=== PATIENT | female | born 1945 | race African-American/Black ===

== ENCOUNTER 2018-10-16 12:58 | Inpatient (IN) | payer MEDICARE, MEDICAID ==
[~2018-10-16] VITALS: Ht 167.6 cm; Wt 70.3 kg
[~2018-10-16 12:58] MED LIST: AMLO10TA80 PO; ASPI-1159 PO; ATOR10TA PO; CARB200T6 PO; DIVA-73 PO; DOCU-150 PO; HYDR-4134 PO; KEPP500 PO; LACT10SO30 PO; METO25TA6 PO; ROPI0.257 PO; SOD133EN RC; VALS160T2 PO
[2018-10-16 15:27] LABS: BASOPHILS % 0.4 % (0.0-2.0); EOSINOPHILS % 1.5 % (0.0-5.0); HEMATOCRIT. 32.8 % (36.0-48.0); HEMOGLOBIN. 10.8 g/dL (12.0-16.0); LYMPHOCYTES % 20.4 % (20.0-50.0); MEAN CORPUSCULAR HEMOGLOBIN 31.8 pg (28.0-32.0); MEAN CORPUSCULAR VOLUME 96.3 fL (81.0-99.0); MONOCYTES % 13.4 % (2.0-8.0); NEUTROPHILS % 64.3 % (40.0-76.0); PLATELET 191 x1000/uL (130-400); RED BLOOD CELL COUNT 3.41 mill/uL (4.2-5.4); RED CELL DISTRIBUTION WIDTH 12.9 % (11.6-14.6)
[2018-10-16 15:31] LABS: CHLORIDE 107 mEq/L (98-107)
[2018-10-16 15:32] LABS: PARTIAL THROMBOPLASTIN TIME 28.7 sec (23.4-31.0)
[2018-10-16 15:48] LABS: CLARITY URINE CLOUDY (CLEAR); KETONES URINE TRACE (NEGATIVE); LEUKOCYTE ESTERASE URINE 1+ (NEGATIVE); NITRITE URINE POSITIVE (NEGATIVE); OCCULT BLOOD URINE 3+ (NEGATIVE); PROTEIN URINE 2+ (NEGATIVE); SPECIFIC GRAVITY URINE 1.011 (1.005-1.030)
[2018-10-16 15:53] LABS: COLOR URINE BROWN (YELLOW)
[2018-10-16] MEDS ORDERED: CEFTRIAXONE 1 G PREMIX 50 ML IV ONE (16:45)
[2018-10-16] MEDS ORDERED: GUAIFENESIN 200MG/10ML SUGAR FREE UDC PO PRN (18:00)
[2018-10-16] MEDS ORDERED: ONDANSETRON HCL 4MG/2ML INJ IV PRN (18:00)
[2018-10-16] MEDS ORDERED: DOCUSATE SODIUM 100MG CAPSULE PO PRN (18:00)
[2018-10-16] MEDS ORDERED: LORAZEPAM 2MG/ML CPJ IV PRN (18:00)
[2018-10-16] MEDS ORDERED: MAGNESIUM/ALUMINUM HYDROXIDE/SIMETHICONE 30ML UDC PO PRN (18:00)
[2018-10-16] MEDS ORDERED: HYDROCODONE/ACETAMINOPHEN 5/325MG TABLET PO PRN (18:00)
[2018-10-16] MEDS ORDERED: ACETAMINOPHEN 325MG TABLET PO PRN (18:00)
[2018-10-16] MEDS: CLONIDINE 0.1MG TABLET PO PRN (22:00)
[2018-10-16] MEDS ORDERED: HYDRALAZINE 20MG/ML VIAL IV NR (23:45)
[2018-10-17] VITALS (7 sets, daily range): BP systolic 103–172; BP diastolic 42–58
[2018-10-17] MEDS ORDERED: BENA10TA10 PO (00:48)
[2018-10-17] MEDS ORDERED: BISA-81 PO (00:50)
[2018-10-17] MEDS ORDERED: NA P133E RC (00:53)
[2018-10-17] MEDS ORDERED: HALO1TAB PO (00:55)
[2018-10-17] MEDS ORDERED: IBUP-2028 PO (00:56)
[2018-10-17] MEDS ORDERED: LACT10SO PO (00:57)
[2018-10-17] MEDS ORDERED: METO10TA3 PO (00:58)
[2018-10-17] MEDS ORDERED: LEVOFLOXACIN 500MG PREMIX 100 ML IV NR (01:00)
[2018-10-17] MEDS ORDERED: PRAV20TA57 PO (01:00)
[2018-10-17] MEDS ORDERED: RISP0.5T19 PO (01:01)
[2018-10-17] MEDS ORDERED: ACET-2708 PO (01:02)
[2018-10-17] MEDS: SODIUM CHLORIDE 0.9% 1,000 ML IV SCH ×2 (01:32→14:36)
[2018-10-17 06:45] LABS: HEMATOCRIT. 32.3 % (36.0-48.0); HEMOGLOBIN. 10.7 g/dL (12.0-16.0); MEAN CORPUSCULAR HEMOGLOBIN 31.9 pg (28.0-32.0); MEAN CORPUSCULAR VOLUME 96.2 fL (81.0-99.0); PLATELET 169 x1000/uL (130-400); RED BLOOD CELL COUNT 3.36 mill/uL (4.2-5.4); RED CELL DISTRIBUTION WIDTH 13.1 % (11.6-14.6)
[2018-10-17 07:51] LABS: CHLORIDE 113 mEq/L (98-107)
[2018-10-17 07:58] LABS: PLATELET ESTIMATE NORMAL
[2018-10-17] MEDS: METOPROLOL TARTRATE 25MG TABLET PO SCH (11:30)
[2018-10-17] MEDS: LEVETIRACETAM 500MG TABLET PO SCH ×2 (12:15→20:33)
[2018-10-17] MEDS: DIVALPROEX SODIUM 250MG DR TABLET PO SCH ×2 (12:15→16:30)
[2018-10-17] MEDS: CARBAMAZEPINE 200MG TABLET PO SCH ×2 (12:16→16:30)
[2018-10-17] MEDS ORDERED: DIVALPROEX SODIUM 125MG EC TABLET PO SCH (14:00)
[2018-10-17] MEDS: HYDRALAZINE HCL 25MG TABLET PO SCH ×2 (14:31→20:34)
[2018-10-17] MEDS: ROPINIROLE HCL 1MG TABLET PO SCH ×2 (14:31→20:33)
[2018-10-17] MEDS: ATORVASTATIN CALCIUM 10MG TABLET PO SCH (20:33)
[2018-10-17] MEDS: CLONIDINE 0.1MG TABLET PO PRN (20:34)
[2018-10-18] VITALS (7 sets, daily range): BP systolic 94–205; BP diastolic 49–73
[2018-10-18] MEDS: LEVOFLOXACIN 250MG PREMIX 50 ML IV SCH ×2 (00:09→23:09)
[2018-10-18] MEDS: SODIUM CHLORIDE 0.9% 1,000 ML IV SCH ×2 (05:28→17:36)
[2018-10-18] MEDS: ROPINIROLE HCL 1MG TABLET PO SCH ×3 (05:29→21:15)
[2018-10-18] MEDS: HYDRALAZINE HCL 25MG TABLET PO SCH ×3 (05:29→21:15)
[2018-10-18 06:42] LABS: HEMATOCRIT. 32.1 % (36.0-48.0); HEMOGLOBIN. 10.5 g/dL (12.0-16.0); MEAN CORPUSCULAR HEMOGLOBIN 31.5 pg (28.0-32.0); MEAN CORPUSCULAR VOLUME 96.8 fL (81.0-99.0); MEAN PLATELET VOLUME 9.4 fl (7.4-10.4); PLATELET 173 x1000/uL (130-400); RED BLOOD CELL COUNT 3.32 mill/uL (4.2-5.4); RED CELL DISTRIBUTION WIDTH 13.2 % (11.6-14.6)
[2018-10-18 06:43] LABS: CHLORIDE 115 mEq/L (98-107)
[2018-10-18] MEDS: LEVETIRACETAM 500MG TABLET PO SCH ×2 (08:28→20:56)
[2018-10-18] MEDS: DIVALPROEX SODIUM 250MG DR TABLET PO SCH ×2 (08:28→17:35)
[2018-10-18] MEDS: CARBAMAZEPINE 200MG TABLET PO SCH ×3 (08:28→17:35)
[2018-10-18] MEDS: METOPROLOL TARTRATE 25MG TABLET PO SCH (08:28)
[2018-10-18 11:13] LABS: PLATELET ESTIMATE NORMAL
[2018-10-18] MEDS: CLONIDINE 0.1MG TABLET PO PRN (20:57)
[2018-10-18] MEDS: ATORVASTATIN CALCIUM 10MG TABLET PO SCH (20:57)
[2018-10-19] VITALS (29 sets, daily range): BP systolic 131–237; BP diastolic 56–117
[2018-10-19] MEDS: ROPINIROLE HCL 1MG TABLET PO SCH ×3 (06:02→22:00)
[2018-10-19] MEDS: HYDRALAZINE HCL 25MG TABLET PO SCH (06:03)
[2018-10-19 06:45] LABS: CHLORIDE 119 mEq/L (98-107)
[2018-10-19] MEDS: LEVETIRACETAM 500MG TABLET PO SCH (09:00)
[2018-10-19] MEDS: CARBAMAZEPINE 200MG TABLET PO SCH ×3 (09:00→18:20)
[2018-10-19] MEDS: DIVALPROEX SODIUM 250MG DR TABLET PO SCH ×2 (09:00→17:00)
[2018-10-19] MEDS: METOPROLOL TARTRATE 25MG TABLET PO SCH (09:01)
[2018-10-19] MEDS ORDERED: SODIUM POLYSTYRENE SULFONATE 15 G/60 ML BOT PO SCH (10:00)
[2018-10-19] MEDS: SODIUM CHLORIDE 0.9% 1,000 ML IV SCH ×2 (10:02→22:09)
[2018-10-19] MEDS: CLONIDINE 0.1MG TABLET PO PRN (11:26)
[2018-10-19] MEDS: METOPROLOL TARTRATE 50MG TABLET PO SCH ×2 (12:30→21:00)
[2018-10-19] MEDS: HYDRALAZINE HCL 100MG TABLET PO SCH ×2 (12:30→22:00)
[2018-10-19] MEDS: CLONIDINE 0.1MG TABLET PO SCH (13:40)
[2018-10-19] MEDS ORDERED: HYDRALAZINE HCL 50MG TABLET PO SCH (14:00)
[2018-10-19] MEDS ORDERED: CLONIDINE HCL 0.3MG/24HR PATCH TD NR (17:30)
[2018-10-19] MEDS ORDERED: LACTULOSE 20G/30ML UDC NG PRN (17:45)
[2018-10-19] MEDS ORDERED: NA PHOS,M-B/NA PHOS,DI-BA ENEMA 118ML PR NR (17:45)
[2018-10-19] MEDS: NICARDIPINE 50 MG in SODIUM CHLORIDE 0.9% 230 ML IV PRN (20:10)
[2018-10-19] MEDS: ATORVASTATIN CALCIUM 10MG TABLET PO SCH (21:00)
[2018-10-20] VITALS (86 sets, daily range): BP systolic 108–181; BP diastolic 48–128
[2018-10-20] MEDS: LEVETIRACETAM 500 MG in SODIUM CHLORIDE 0.9% 100 ML IV SCH ×3 (00:34→21:49)
[2018-10-20] MEDS: VALPROATE SODIUM 500 MG in SODIUM CHLORIDE 0.9% 100 ML IV SCH ×3 (00:34→21:48)
[2018-10-20] MEDS: NICARDIPINE 50 MG in SODIUM CHLORIDE 0.9% 230 ML IV PRN ×2 (00:34→06:08)
[2018-10-20] MEDS: LEVOFLOXACIN 250MG PREMIX 50 ML IV SCH (00:35)
[2018-10-20 05:50] LABS: BASOPHILS % 0.5 % (0.0-2.0); HEMATOCRIT. 30.4 % (36.0-48.0); HEMOGLOBIN. 10.1 g/dL (12.0-16.0); LYMPHOCYTES % 14.6 % (20.0-50.0); MEAN CORPUSCULAR HEMOGLOBIN 31.8 pg (28.0-32.0); MONOCYTES % 12.6 % (2.0-8.0); NEUTROPHILS % 71.3 % (40.0-76.0); RED BLOOD CELL COUNT 3.17 mill/uL (4.2-5.4); RED CELL DISTRIBUTION WIDTH 12.9 % (11.6-14.6)
[2018-10-20 05:54] LABS: CHLORIDE 120 mEq/L (98-107)
[2018-10-20] MEDS: ROPINIROLE HCL 1MG TABLET PO SCH ×3 (06:00→22:19)
[2018-10-20] MEDS: HYDRALAZINE HCL 100MG TABLET PO SCH ×3 (06:00→22:19)
[2018-10-20] MEDS ORDERED: SORBITOL 70% SOLN 30ML PO NR (10:00)
[2018-10-20] MEDS: METOPROLOL TARTRATE 50MG TABLET PO SCH ×2 (11:55→21:49)
[2018-10-20] MEDS: CARBAMAZEPINE 200MG TABLET PO SCH ×3 (11:56→18:20)
[2018-10-20] MEDS: DEXT 5%/0.45% NACL 1000ML 1,000 ML IV SCH (12:17)
[2018-10-20] MEDS ORDERED: CLONIDINE HCL 0.3MG/24HR PATCH TOP SCH (18:00)
[2018-10-20] MEDS: NICARDIPINE 100 MG in SODIUM CHLORIDE 0.9% 60 ML IV PRN (18:06)
[2018-10-20] MEDS ORDERED: LEVOFLOXACIN 250MG TABLET PO SCH (21:00)
[2018-10-20] MEDS: ATORVASTATIN CALCIUM 10MG TABLET PO SCH (21:49)
[2018-10-21] VITALS (94 sets, daily range): BP systolic 94–171; BP diastolic 40–133
[2018-10-21] MEDS: NICARDIPINE 100 MG in SODIUM CHLORIDE 0.9% 60 ML IV PRN ×3 (00:37→13:39)
[2018-10-21] MEDS: DEXT 5%/0.45% NACL 1000ML 1,000 ML IV SCH (02:10)
[2018-10-21] MEDS: HYDRALAZINE HCL 100MG TABLET PO SCH (06:26)
[2018-10-21] MEDS: ROPINIROLE HCL 1MG TABLET PO SCH (06:26)
[2018-10-21] MEDS: CARBAMAZEPINE 200MG TABLET PO SCH ×2 (08:20→12:26)
[2018-10-21] MEDS: VALPROATE SODIUM 500 MG in SODIUM CHLORIDE 0.9% 100 ML IV SCH ×2 (08:54→21:24)
[2018-10-21] MEDS: LEVETIRACETAM 500 MG in SODIUM CHLORIDE 0.9% 100 ML IV SCH ×2 (08:54→20:53)
[2018-10-21] MEDS: METOPROLOL TARTRATE 50MG TABLET PO SCH ×2 (09:00→20:13)
[2018-10-21 09:23] LABS: BASOPHILS % 0.5 % (0.0-2.0); EOSINOPHILS % 0.4 % (0.0-5.0); HEMATOCRIT. 29.6 % (36.0-48.0); HEMOGLOBIN. 9.8 g/dL (12.0-16.0); LYMPHOCYTES % 12.1 % (20.0-50.0); MEAN CORPUSCULAR HEMOGLOBIN 31.5 pg (28.0-32.0); MEAN PLATELET VOLUME 8.7 fl (7.4-10.4); MONOCYTES % 10.6 % (2.0-8.0); NEUTROPHILS % 76.4 % (40.0-76.0); PLATELET 151 x1000/uL (130-400); RED BLOOD CELL COUNT 3.12 mill/uL (4.2-5.4); RED CELL DISTRIBUTION WIDTH 12.6 % (11.6-14.6)
[2018-10-21] MEDS: DEXTROSE 5% WATER 1,000 ML IV SCH ×2 (11:22→23:54)
[2018-10-21] MEDS ORDERED: POTASSIUM CHLORIDE INJ 40 MEQ in DEXT 5% WATER 250 ML IV NR (12:00)
[2018-10-21] MEDS: METOCLOPRAMIDE HCL 10MG/2ML VIAL IV SCH ×2 (13:31→21:24)
[2018-10-21] MEDS: LEVOFLOXACIN 250MG PREMIX 50 ML IV SCH (20:53)
[2018-10-21] MEDS ORDERED: ACETAMINOPHEN 650MG SUPP PR PRN (21:30)
[2018-10-22] VITALS (95 sets, daily range): BP systolic 96–210; BP diastolic 51–151
[2018-10-22] MEDS ORDERED: KCL 20MEQ/100ML PREMIX 100 ML IV NR
[2018-10-22] MEDS: NICARDIPINE 100 MG in SODIUM CHLORIDE 0.9% 60 ML IV PRN ×2 (00:21→10:28)
[2018-10-22] MEDS: METOCLOPRAMIDE HCL 10MG/2ML VIAL IV SCH ×3 (05:43→22:17)
[2018-10-22 05:55] LABS: BASOPHILS % 0.3 % (0.0-2.0); EOSINOPHILS % 0.2 % (0.0-5.0); HEMATOCRIT. 29.7 % (36.0-48.0); HEMOGLOBIN. 9.7 g/dL (12.0-16.0); LYMPHOCYTES % 11.3 % (20.0-50.0); MEAN CORPUSCULAR HEMOGLOBIN 31.3 pg (28.0-32.0); MEAN CORPUSCULAR VOLUME 95.8 fL (81.0-99.0); MEAN PLATELET VOLUME 9.1 fl (7.4-10.4); MONOCYTES % 9.9 % (2.0-8.0); NEUTROPHILS % 78.3 % (40.0-76.0); PLATELET 127 x1000/uL (130-400); RED CELL DISTRIBUTION WIDTH 12.8 % (11.6-14.6)
[2018-10-22 06:30] LABS: PHOSPHORUS 2.5 mg/dL (2.5-4.9)
[2018-10-22] MEDS: LEVETIRACETAM 500 MG in SODIUM CHLORIDE 0.9% 100 ML IV SCH ×2 (08:50→20:53)
[2018-10-22] MEDS: METOPROLOL TARTRATE 50MG TABLET PO SCH ×2 (09:00→20:52)
[2018-10-22] MEDS ORDERED: MAGNESIUM 1 G PREMIX 100 ML IV SCH (09:00)
[2018-10-22 09:16] LABS: BG CARBOXYHEMOGLOBIN 0.3 % (0.5-1.5); BG DEOXYHEMOGLOBIN 11.9 % (0.0-5.0); BG FRACTION INSPIRED OXYGEN 50; BG HCO3 ACT 21.1 mmol/L (22.0-26.0); BG METHEMOGLOBIN 0.3 % (0.0-1.5); BG OXYHEMOGLOBIN 87.5 % (94.0-97.0); BG PCO2 34.2 mmHg (35.0-45.0); BG PH 7.409 (7.350-7.450); BG SAMPLE SITE RIGHT RADIAL; BG TOTAL HEMOGLOBIN 9.6 g/dL (12.0-18.0); BG VENT MODE MASK - VENTI
[2018-10-22] MEDS ORDERED: POTASSIUM CHLORIDE 20MEQ TABLET SR PO NR (10:00)
[2018-10-22] MEDS: SORBITOL 70% SOLN 30ML PO SCH ×2 (10:30→13:15)
[2018-10-22] MEDS ORDERED: IPRATROPIUM/ALBUTEROL 0.5-3(2.5)MG/3ML NEB HHN PRN (10:45)
[2018-10-22] MEDS: VALPROATE SODIUM 500 MG in SODIUM CHLORIDE 0.9% 100 ML IV SCH ×2 (11:10→20:53)
[2018-10-22] MEDS: IPRATROPIUM/ALBUTEROL 0.5-3(2.5)MG/3ML NEB HHN SCH ×2 (12:45→21:39)
[2018-10-22] MEDS: DEXTROSE 5% WATER 1,000 ML IV SCH (13:15)
[2018-10-22] MEDS: LEVOFLOXACIN 250MG PREMIX 50 ML IV SCH (20:53)
[2018-10-23] VITALS (98 sets, daily range): BP systolic 109–174; BP diastolic 46–141
[2018-10-23] MEDS: IPRATROPIUM/ALBUTEROL 0.5-3(2.5)MG/3ML NEB HHN SCH ×4 (02:42→20:14)
[2018-10-23] MEDS: DEXTROSE 5% WATER 1,000 ML IV SCH ×2 (03:59→17:31)
[2018-10-23 06:04] LABS: BASOPHILS % 0.1 % (0.0-2.0); EOSINOPHILS % 0.6 % (0.0-5.0); HEMATOCRIT. 27.6 % (36.0-48.0); HEMOGLOBIN. 9.1 g/dL (12.0-16.0); LYMPHOCYTES % 9.8 % (20.0-50.0); MEAN CORPUSCULAR HEMOGLOBIN 31.9 pg (28.0-32.0); MEAN CORPUSCULAR VOLUME 96.9 fL (81.0-99.0); MEAN PLATELET VOLUME 9.1 fl (7.4-10.4); MONOCYTES % 6.9 % (2.0-8.0); NEUTROPHILS % 82.6 % (40.0-76.0); PLATELET 111 x1000/uL (130-400); RED BLOOD CELL COUNT 2.84 mill/uL (4.2-5.4); RED CELL DISTRIBUTION WIDTH 12.8 % (11.6-14.6)
[2018-10-23] MEDS: METOCLOPRAMIDE HCL 10MG/2ML VIAL IV SCH ×3 (06:12→22:32)
[2018-10-23 08:47] LABS: BG BASE EXCESS -2.9 mmol/L (-2.0-2.0); BG CARBOXYHEMOGLOBIN 0.3 % (0.5-1.5); BG DEOXYHEMOGLOBIN 15.9 % (0.0-5.0); BG FRACTION INSPIRED OXYGEN 50; BG HCO3 ACT 21.7 mmol/L (22.0-26.0); BG METHEMOGLOBIN 0.4 % (0.0-1.5); BG OXYHEMOGLOBIN 83.4 % (94.0-97.0); BG PCO2 36.8 mmHg (35.0-45.0); BG PH 7.389 (7.350-7.450); BG PO2 50.2 mmHg (75.0-100.0); BG SAMPLE SITE RIGHT RADIAL; BG TOTAL HEMOGLOBIN 9.2 g/dL (12.0-18.0); BG VENT MODE MASK - VENTI
[2018-10-23] MEDS: METOPROLOL TARTRATE 50MG TABLET PO SCH ×2 (09:00→20:58)
[2018-10-23] MEDS: LEVETIRACETAM 500 MG in SODIUM CHLORIDE 0.9% 100 ML IV SCH ×2 (09:21→20:57)
[2018-10-23] MEDS: VALPROATE SODIUM 500 MG in SODIUM CHLORIDE 0.9% 100 ML IV SCH ×2 (09:21→20:57)
[2018-10-23] MEDS ORDERED: SIMETHICONE 40 MG/0.6 ML 30ML ONE (13:37)
[2018-10-23] MEDS ORDERED: BACTERIOSTATIC SODIUM CHLORIDE 0.9% 30ML VIAL IJ ONE (13:37)
[2018-10-23] MEDS: NICARDIPINE 100 MG in SODIUM CHLORIDE 0.9% 60 ML IV PRN (14:34)
[2018-10-23] MEDS ORDERED: MIDAZOLAM HCL 5 MG/5 ML VIAL ONE (14:47)
[2018-10-23] MEDS ORDERED: FENTANYL CITRATE/PF 50MCG/ML 2ML VIAL ONE (14:47)
[2018-10-23] MEDS ORDERED: MIDAZOLAM HCL 5 MG/5 ML VIAL IV PRN (15:17)
[2018-10-23] MEDS ORDERED: FENTANYL CITRATE/PF 50MCG/ML 2ML VIAL IV PRN (15:18)
[2018-10-23] MEDS ORDERED: LACTULOSE 20G/30ML UDC PO NR (16:15)
[2018-10-23] MEDS: LEVOFLOXACIN 250MG PREMIX 50 ML IV SCH (20:57)
[2018-10-23] MEDS: ATORVASTATIN CALCIUM 10MG TABLET PO SCH (20:57)
[2018-10-23] MEDS: CLONIDINE 0.1MG TABLET PO SCH (20:58)
[2018-10-23] MEDS: HYDRALAZINE HCL 100MG TABLET PO SCH (22:32)
[2018-10-23] MEDS: LACTULOSE 20G/30ML UDC PO SCH (22:32)
[2018-10-23] MEDS: ROPINIROLE HCL 1MG TABLET PO SCH (22:33)
[2018-10-24] VITALS (81 sets, daily range): BP systolic 111–179; BP diastolic 15–122
[2018-10-24] MEDS: IPRATROPIUM/ALBUTEROL 0.5-3(2.5)MG/3ML NEB HHN SCH ×4 (01:41→21:02)
[2018-10-24] MEDS: DEXTROSE 5% WATER 1,000 ML IV SCH ×2 (05:31→18:38)
[2018-10-24] MEDS: HYDRALAZINE HCL 100MG TABLET PO SCH ×3 (05:40→22:04)
[2018-10-24] MEDS: ROPINIROLE HCL 1MG TABLET PO SCH ×3 (05:40→22:04)
[2018-10-24] MEDS: LACTULOSE 20G/30ML UDC PO SCH ×3 (05:41→22:04)
[2018-10-24] MEDS: METOCLOPRAMIDE HCL 10MG/2ML VIAL IV SCH ×3 (05:41→22:04)
[2018-10-24 07:50] LABS: BG BASE EXCESS -6.8 mmol/L (-2.0-2.0); BG CARBOXYHEMOGLOBIN 0.3 % (0.5-1.5); BG DEOXYHEMOGLOBIN 3.8 % (0.0-5.0); BG FRACTION INSPIRED OXYGEN 40; BG HCO3 ACT 17.6 mmol/L (22.0-26.0); BG METHEMOGLOBIN 0.7 % (0.0-1.5); BG OXYGEN SATURATION 96.2 % (92.0-98.5); BG OXYHEMOGLOBIN 95.2 % (94.0-97.0); BG PCO2 31.3 mmHg (35.0-45.0); BG PH 7.369 (7.350-7.450); BG PO2 92.6 mmHg (75.0-100.0); BG SAMPLE SITE RIGHT RADIAL; BG TOTAL HEMOGLOBIN 8.8 g/dL (12.0-18.0); BG VENT MODE VAPOTHERM
[2018-10-24] MEDS: CARBAMAZEPINE 200MG TABLET PO SCH ×3 (08:20→18:38)
[2018-10-24] MEDS: LEVETIRACETAM 500 MG in SODIUM CHLORIDE 0.9% 100 ML IV SCH ×2 (09:00→21:11)
[2018-10-24] MEDS: VALPROATE SODIUM 500 MG in SODIUM CHLORIDE 0.9% 100 ML IV SCH ×2 (09:00→21:11)
[2018-10-24] MEDS: METOPROLOL TARTRATE 50MG TABLET PO SCH ×2 (09:35→21:11)
[2018-10-24] MEDS: CLONIDINE 0.1MG TABLET PO SCH ×2 (09:35→21:11)
[2018-10-24 10:26] LABS: BASOPHILS % 0.2 % (0.0-2.0); EOSINOPHILS % 2.5 % (0.0-5.0); HEMATOCRIT. 28.1 % (36.0-48.0); HEMOGLOBIN. 9.4 g/dL (12.0-16.0); MEAN CORPUSCULAR HEMOGLOBIN 31.5 pg (28.0-32.0); MEAN CORPUSCULAR VOLUME 94.8 fL (81.0-99.0); MONOCYTES % 5.5 % (2.0-8.0); NEUTROPHILS % 81.8 % (40.0-76.0); PLATELET 133 x1000/uL (130-400); RED BLOOD CELL COUNT 2.97 mill/uL (4.2-5.4); RED CELL DISTRIBUTION WIDTH 12.8 % (11.6-14.6)
[2018-10-24] MEDS: POTASSIUM CHLORIDE 20MEQ TABLET SR PO SCH (12:00)
[2018-10-24] MEDS ORDERED: POTASSIUM CHLORIDE INJ 40 MEQ in DEXT 5% WATER 250 ML IV NR (13:00)
[2018-10-24] MEDS: ATORVASTATIN CALCIUM 10MG TABLET PO SCH (21:10)
[2018-10-24] MEDS: LEVOFLOXACIN 250MG PREMIX 50 ML IV SCH (21:11)
[2018-10-25] VITALS (51 sets, daily range): BP systolic 94–174; BP diastolic 42–91
[2018-10-25] MEDS: IPRATROPIUM/ALBUTEROL 0.5-3(2.5)MG/3ML NEB HHN SCH ×4 (02:20→21:25)
[2018-10-25] MEDS: METOCLOPRAMIDE HCL 10MG/2ML VIAL IV SCH ×3 (05:07→22:34)
[2018-10-25] MEDS: ROPINIROLE HCL 1MG TABLET PO SCH ×2 (05:07→13:23)
[2018-10-25] MEDS: HYDRALAZINE HCL 100MG TABLET PO SCH ×3 (05:07→22:35)
[2018-10-25] MEDS: LACTULOSE 20G/30ML UDC PO SCH ×3 (05:09→22:34)
[2018-10-25] MEDS: CLONIDINE 0.1MG TABLET PO PRN (06:53)
[2018-10-25] MEDS: DEXTROSE 5% WATER 1,000 ML IV SCH ×2 (07:40→20:55)
[2018-10-25] MEDS: CARBAMAZEPINE 200MG TABLET PO SCH ×3 (08:24→17:31)
[2018-10-25] MEDS: METOPROLOL TARTRATE 50MG TABLET PO SCH ×2 (08:25→20:55)
[2018-10-25] MEDS: LEVETIRACETAM 500 MG in SODIUM CHLORIDE 0.9% 100 ML IV SCH ×2 (08:26→22:34)
[2018-10-25] MEDS: CLONIDINE 0.1MG TABLET PO SCH ×2 (08:26→20:54)
[2018-10-25] MEDS: VALPROATE SODIUM 500 MG in SODIUM CHLORIDE 0.9% 100 ML IV SCH ×2 (08:26→22:34)
[2018-10-25] MEDS: POTASSIUM CHLORIDE 20MEQ TABLET SR PO SCH (08:27)
[2018-10-25 10:43] LABS: BASOPHILS % 0.4 % (0.0-2.0); EOSINOPHILS % 2.9 % (0.0-5.0); HEMATOCRIT. 25.8 % (36.0-48.0); HEMOGLOBIN. 8.6 g/dL (12.0-16.0); LYMPHOCYTES % 13.5 % (20.0-50.0); MEAN CORPUSCULAR HEMOGLOBIN 31.5 pg (28.0-32.0); MEAN CORPUSCULAR VOLUME 94.8 fL (81.0-99.0); MEAN PLATELET VOLUME 9.4 fl (7.4-10.4); NEUTROPHILS % 73.2 % (40.0-76.0); PLATELET 160 x1000/uL (130-400); RED BLOOD CELL COUNT 2.72 mill/uL (4.2-5.4); RED CELL DISTRIBUTION WIDTH 12.8 % (11.6-14.6)
[2018-10-25 11:01] LABS: CHLORIDE 113 mEq/L (98-107)
[2018-10-25] MEDS: ATORVASTATIN CALCIUM 10MG TABLET PO SCH (20:51)
[2018-10-25] MEDS: LEVOFLOXACIN 250MG PREMIX 50 ML IV SCH (20:55)
[2018-10-26] VITALS (12 sets, daily range): BP systolic 96–145; BP diastolic 38–62
[2018-10-26] MEDS: ROPINIROLE HCL 1MG TABLET PO SCH ×4 (00:36→21:33)
[2018-10-26] MEDS: IPRATROPIUM/ALBUTEROL 0.5-3(2.5)MG/3ML NEB HHN SCH ×4 (01:40→20:40)
[2018-10-26] MEDS: METOCLOPRAMIDE HCL 10MG/2ML VIAL IV SCH ×3 (06:13→21:33)
[2018-10-26] MEDS: LACTULOSE 20G/30ML UDC PO SCH ×3 (06:13→21:33)
[2018-10-26] MEDS: HYDRALAZINE HCL 100MG TABLET PO SCH ×3 (06:13→21:34)
[2018-10-26] MEDS: CARBAMAZEPINE 200MG TABLET PO SCH ×3 (06:21→18:24)
[2018-10-26] MEDS ORDERED: CLONIDINE HCL 0.3MG/24HR PATCH TD SCH (09:00)
[2018-10-26] MEDS: LEVETIRACETAM 500 MG in SODIUM CHLORIDE 0.9% 100 ML IV SCH ×2 (09:13→21:33)
[2018-10-26] MEDS: METOPROLOL TARTRATE 50MG TABLET PO SCH ×2 (09:13→20:20)
[2018-10-26] MEDS: POTASSIUM CHLORIDE 20MEQ TABLET SR PO SCH (09:13)
[2018-10-26] MEDS: VALPROATE SODIUM 500 MG in SODIUM CHLORIDE 0.9% 100 ML IV SCH ×2 (10:18→20:20)
[2018-10-26] MEDS: CLONIDINE 0.1MG TABLET PO SCH ×2 (10:55→20:20)
[2018-10-26] MEDS: DEXTROSE 5% WATER 1,000 ML IV SCH (10:58)
[2018-10-26 20:00] LABS: CHLORIDE 119 mEq/L (98-107)
[2018-10-26] MEDS: ATORVASTATIN CALCIUM 10MG TABLET PO SCH (20:20)
[2018-10-27] VITALS (12 sets, daily range): BP systolic 117–152; BP diastolic 47–94
[2018-10-27] MEDS: DEXTROSE 5% WATER 1,000 ML IV SCH ×2 (00:05→17:24)
[2018-10-27] MEDS: IPRATROPIUM/ALBUTEROL 0.5-3(2.5)MG/3ML NEB HHN SCH ×4 (02:02→20:38)
[2018-10-27] MEDS: HYDRALAZINE HCL 100MG TABLET PO SCH ×3 (05:20→21:12)
[2018-10-27] MEDS: LACTULOSE 20G/30ML UDC PO SCH ×3 (05:20→21:06)
[2018-10-27] MEDS: ROPINIROLE HCL 1MG TABLET PO SCH ×3 (05:21→21:11)
[2018-10-27] MEDS: METOCLOPRAMIDE HCL 10MG/2ML VIAL IV SCH ×3 (05:21→21:09)
[2018-10-27 06:55] LABS: HEMATOCRIT. 24.6 % (36.0-48.0); HEMOGLOBIN. 8.1 g/dL (12.0-16.0); MEAN CORPUSCULAR HEMOGLOBIN 32.3 pg (28.0-32.0); MEAN CORPUSCULAR VOLUME 98.1 fL (81.0-99.0); MEAN PLATELET VOLUME 9.9 fl (7.4-10.4); PLATELET 81 x1000/uL (130-400); RED BLOOD CELL COUNT 2.51 mill/uL (4.2-5.4); RED CELL DISTRIBUTION WIDTH 13.2 % (11.6-14.6)
[2018-10-27] MEDS: CARBAMAZEPINE 200MG TABLET PO SCH ×3 (07:54→17:24)
[2018-10-27] MEDS: POTASSIUM CHLORIDE 20MEQ TABLET SR PO SCH (08:29)
[2018-10-27] MEDS: VALPROATE SODIUM 500 MG in SODIUM CHLORIDE 0.9% 100 ML IV SCH ×2 (08:29→22:46)
[2018-10-27] MEDS: CLONIDINE 0.1MG TABLET PO SCH ×2 (08:29→21:13)
[2018-10-27] MEDS: METOPROLOL TARTRATE 50MG TABLET PO SCH ×2 (08:29→21:12)
[2018-10-27] MEDS: LEVETIRACETAM 500 MG in SODIUM CHLORIDE 0.9% 100 ML IV SCH ×2 (09:48→21:06)
[2018-10-27 10:16] LABS: PLATELET ESTIMATE DECREASED
[2018-10-27] MEDS: ATORVASTATIN CALCIUM 10MG TABLET PO SCH (21:11)
[2018-10-28] VITALS: BP 141/61
[2018-10-28] MEDS: IPRATROPIUM/ALBUTEROL 0.5-3(2.5)MG/3ML NEB HHN SCH (00:30)
[2018-10-28 04:00] VITALS: BP 148/58
[2018-10-28] MEDS: METOCLOPRAMIDE HCL 10MG/2ML VIAL IV SCH (05:40)
[2018-10-28] MEDS: LACTULOSE 20G/30ML UDC PO SCH (05:41)
[2018-10-28] MEDS: HYDRALAZINE HCL 100MG TABLET PO SCH (05:42)
[2018-10-28] MEDS: ROPINIROLE HCL 1MG TABLET PO SCH (06:04)
[2018-10-28 08:00] VITALS: BP 164/55
[2018-10-28] MEDS: CARBAMAZEPINE 200MG TABLET PO SCH (09:11)
[2018-10-28] MEDS: POTASSIUM CHLORIDE 20MEQ TABLET SR PO SCH (09:11)
[2018-10-28] MEDS: METOPROLOL TARTRATE 50MG TABLET PO SCH (09:12)
[2018-10-28] MEDS: LEVETIRACETAM 500 MG in SODIUM CHLORIDE 0.9% 100 ML IV SCH (09:13)
[2018-10-28] MEDS: CLONIDINE 0.1MG TABLET PO SCH (09:13)
[2018-10-28] MEDS: VALPROATE SODIUM 500 MG in SODIUM CHLORIDE 0.9% 100 ML IV SCH (09:58)
[2018-10-28 10:47] VITALS: BP 164/55
[2018-10-28] MEDS ORDERED: ROPINIROLE HCL 0.25MG TABLET PO SCH ×2 (14:00)
== END 2018-10-28 12:25 | disposition home health service (06) | DRG 853 ==
LOC: ER 12:58 → 6WST 17:08 → ENRESERV 19:40 → CVICU 10-19 15:01 → 3WST 10-25 17:00 → 8WST 10-28 01:40
PROVIDERS: ADMIT Hospitalist; ATTEND Hospitalist
PROC: B54CZZA Ultrasonography of Left Lower Extremity Veins, Guidance (ICD-10-PCS; 2018-10-19)
PROC: 06HY33Z Insertion of Infusion Device into Lower Vein, Percutaneous Approach (ICD-10-PCS; 2018-10-19)
PROC: 0D9670Z Drainage of Stomach with Drainage Device, Via Natural or Artificial Opening (ICD-10-PCS; 2018-10-20)
PROC: 05H633Z Insertion of Infusion Device into Left Subclavian Vein, Percutaneous Approach (ICD-10-PCS; 2018-10-21)
PROC: B547ZZA Ultrasonography of Left Subclavian Vein, Guidance (ICD-10-PCS; 2018-10-21)
PROC: 0D9M8ZZ Drainage of Descending Colon, Via Natural or Artificial Opening Endoscopic (ICD-10-PCS; principal; 2018-10-23)
PROC: 0D9L8ZZ Drainage of Transverse Colon, Via Natural or Artificial Opening Endoscopic (ICD-10-PCS; 2018-10-23)
PROC: 0D9N8ZZ Drainage of Sigmoid Colon, Via Natural or Artificial Opening Endoscopic (ICD-10-PCS; 2018-10-23)
PROC: 0D9P8ZZ Drainage of Rectum, Via Natural or Artificial Opening Endoscopic (ICD-10-PCS; 2018-10-23)
DX: A41.51 Sepsis due to Escherichia coli [E. coli] (principal); E43 Unspecified severe protein-calorie malnutrition; J96.00 Acute respiratory failure, unspecified whether with hypoxia or hypercapnia; I16.1 Hypertensive emergency; K56.7 Ileus, unspecified; N17.9 Acute kidney failure, unspecified; Q43.1 Hirschsprung's disease; N12 Tubulo-interstitial nephritis, not specified as acute or chronic; K92.2 Gastrointestinal hemorrhage, unspecified; F20.9 Schizophrenia, unspecified; D64.9 Anemia, unspecified; K74.60 Unspecified cirrhosis of liver; L91.8 Other hypertrophic disorders of the skin; S30.810A Abrasion of lower back and pelvis, initial encounter; I10 Essential (primary) hypertension; E78.5 Hyperlipidemia, unspecified; E78.00 Pure hypercholesterolemia, unspecified; G40.909 Epilepsy, unspecified, not intractable, without status epilepticus; R13.10 Dysphagia, unspecified; Z79.82 Long term (current) use of aspirin; Z79.899 Other long term (current) drug therapy; Z68.25 Body mass index [BMI] 25.0-25.9, adult
CPT/HCPCS: 36415; 36569; 36600; 71045; 74018; 74176; 76937; 80048; 82375; 82542; 82805; 82962; 83735; 84100; 84132; 84134; 84484; 86850; 86900; 87077; 87186; 93005; 93971; 94640; 96374; 97110; 97162; 97164; 97166; 97530; 99285; C1725; C1893; J0360; J1953; J1956; J2250; J2765; J3010; J3475; J3480; J3490; J7042; J7050; J7060; J7070; J7620; A4315